=== PATIENT | female | born 2000 | race Caucasian/White ===

== ENCOUNTER 2025-08-12 07:43 | Emergency (ER) | payer SELFPAY ==
--- NOTE | ~2025-08-12 | XR_ITS ---
EXAMINATION: XR chest 2V, 08/12/2025 8:20 CDT HISTORY: Syncope COMPARISON: No comparisons available. Technique: 2 views obtained. Findings: The lungs are clear, no effusion. No pneumothorax. Heart is normal size. Mediastinal and hilar contours are within normal limits. Bony thorax no acute abnormality. Impression: No acute cardiopulmonary abnormality. Reviewed, dictated and finalized at location P. Impression: No acute cardiopulmonary abnormality.
[2025-08-12 07:43] VITALS: BP 114/66; PULSE 79; RESP 20; TEMP 36.4; O2SAT 97
--- NOTE | 2025-08-12 07:50 | ECG_ITS ---
Test Date: 2025-08-12 07:52:05 Measurements Intervals [place] Rate: 80 P: 58 RI: 164 QRS: 122 QRSD: 83 T: 26 QT: 379 QTc: 439 Interpretive Statements SINUS RHYTHM RIGHT AXIS DEVIATION POSSIBLE RIGHT VENTRICULAR CONDUCTION DELAY CANNOT R/O SEPTAL INFARCT, AGE INDETERMINATE BASELINE ARTIFACT- I, II, III, AVR, AVL, AVF, V2-V3 ABNORMAL ECG No previous ECG available for comparison Electronically Signed On 08-12-2025 09:17:12 CDT by Mauricio Allen D.O.
[2025-08-12 08:00] LABS: Hematocrit 41.6 % (37.0-47.0); Hemoglobin 14.5 g/dL (12.0-15.0); Immature Granulocyte Percent A 0.6 % (0-0.5); Lymphocytes Absolute Auto 1.39 K/mm3 (0.9-3.2); Mean Corpuscular HGB Conc 34.9 g/dl (32-36); Mean Corpuscular Hemoglobin 31.5 pg (26-34); Mean Corpuscular Volume 90.4 fl (80-100); Nucleated Red Blood Cells Absolute Auto 0.000 K/mm3 (0.0-0.012); Nucleated Red Blood Cells Perc 0.0 % (0.0-0.2); Platelet Count Result 140 k/mm3 (150-375); Red Blood Count 4.60 M/mm3 (4.2-5.4); White Blood Count 18.0 K/mm3 (4.5-10.0)
[2025-08-12 08:19] VITALS: BP 107/57; BP 108/68; BP 116/62; PULSE 80; PULSE 82; PULSE 83
[2025-08-12 08:19] LABS: Alanine Aminotransferase 25 U/L (6-35); Albumin Level 4.4 g/dL (3.5-5.1); Alkaline Phosphatase 61 U/L (38-126); Anion Gap 9 mmol/L (4-12); Aspartate Amino Transferase 32 U/L (14-36); Bilirubin,Total 2.0 mg/dL (0.2-1.3); Blood Urea Nitrogen 10 mg/dL (7-17); Calcium 9.0 mg/dL (8.4-10.2); Carbon Dioxide 23 mmol/L (22-30); Chloride 101 mmol/L (98-107); Estimated CRCL calculation 97 ml/min; Estimated Glomerular Filt Rate > 60; Glucose 112 mg/dL (65-110); Potassium 3.6 mmol/L (3.4-5.0); Sodium 133 mmol/L (137-145); Total Protein 6.9 g/dL (6.3-8.2)
[2025-08-12] MEDS: LACTATED RINGERS 1,000 ML 999 ML IV CONT (08:37)
[2025-08-12 08:55] LABS: Strep Group A RT-PCR NOT DETECTED (Negative)
--- OUTSIDE RECORDS SUMMARY | 2025-08-12 08:58 | XMS_ITS | Clinical Summary ---
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 She was seen in the ED and obtained MRI brain wwo, with no significant findings other than sinus disease. Diplopia resolved and has not since returned. Patient has full extraocular motility and is ortho in all positions of gaze on cover test, and has 100 stereopsis on randot stereo test. 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 Discussed visual hygiene- taking short breaks every 20-30 minutes and refocusing on a distant object for 20-30 seconds. Patient instructed to call if any new acute symptoms arise. Cardiac risk counseling 10/10/2019 Assessment & Plan (10/10/2019 2:35 PM [employer]): We will screen her for lipids at her next visit, per lipid guidelines. Ventricular septal defect (VSD), perimembranous 10/09/2019 Assessment & Plan (10/10/2019 2:34 PM [employer]): Successfully repaired without evidence of patch leak. No evidence of LV or RV volume or pressure overload. No evidence of DCRV. Repeat TTE in 3 years. Immunizations Immunization Administration Dates Next Due DTaP 04/28/2005, 1,11/29/2000,10/29 DTaP / HiB 10/26/2000 HPV, Unspecified 09/11/2011,05/11/2011, 1 Hep A, Pediatric 07/06/2006,02/27/2006 Hep B Vaccine 03/22/2021,02/18/2021,06/03/2001 Hep B, Adolescent or Pediatric 06/03/2001,2000 HiB 10/29/2000,09/24/2000 IPV 04/28/2005,11/29/2000,10/26/2000 Influenza LAIV (Nasal) 08/02/2010,06/07/2009, Influenza, Quadrivalent, Rec ombinant, Egg Free, Preservative Free, Intramuscular 06/21/2023 Influenza, Quadrivalent, Spl it, Preservative Free, Intramuscular 07/28/2022,07/26/2021,07/04/2020 Influenza, Split 08/12/2007, 5,08/26/2003,08/29,10/02/2001,09/05/2001 Influenza, Unspecified 07/22/2021,2018,08/03/2017,07/31 MMR 02/07/2023, 5,10/29/2000,10/26 Meningococcal ACWY, Unspecified 05/23/2016,02/08 Meningococcal B, unspecified 05/07/2016,04/02/20 15 Pneumococcal Conjugate 7-Valent 11/29/2000 Tdap 03/08/2021 Varicella 02/07/2023,02/28/2008,10/26/2000 Surgical History Surgery Date Site/Laterality Comments VSD REPAIR Repaired at 2.5 years of age with a background patch, no residual VSD Medical History Medical History Date Comments VSD (ventricular septal defect) Migraines Family History * Patient is adopted Relation Name Status Comments Father Mother Social History Tobacco Use Types Packs/Day Years Used Date Smoking Tobacco: Never Cigarettes Smokeless Tobacco: Never Tobacco Cessation:Counseling Given: Not Answered AUDIT-C Answer Date Recorded Q1: How often do you have a drink containing alcohol? Never 08/28/2022 Q2: How many drinks containi ng alcohol do you have on a typical day when you are drinking? Patient does not drink Q3: How often do you have si x or more drinks on one occasion? Never 08/28/2022 PHQ-2 Answer Date Recorded PHQ-2 Total Score (If total score is 3 or more points, staff should administer the PHQ-9) 3 03/12/2024 PHQ-9 Answer Date Recorded PHQ-9 Total Score 14 03/12/2024 Personal Safety Answer Date Recorded Have you ever been in or are you currently in a harmful physical or emotional relationship or is someone making you feel afraid or unsafe? 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 Not on file Not on file Not on file Obstetrics History Last Filed Vital Signs Vital Sign Reading Time Taken Comments Blood Pressure 121/76 03/12/2024 12:59 PM CDT Pulse 72 03/12/2024 12:59 PM CDT Temperature 36.7 C (98 F) 10/26/2023 7:14 AM [employer] Respiratory Rate 16 10/26/2023 7:30 PM [employer] Oxygen Saturation 98% 10/26/2023 7:30 PM [employer] Inhaled Oxygen Concentration - - Weight 59.4 kg (131 lb) 03/12/2024 12:59 PM CDT Height 162.6 cm (5' 4) 03/12/2024 12:59 PM CDT Body Mass Index 22.49 03/12/2024 12:59 PM CDT Plan of Treatment Health Maintenance Due Date Last Done Comments Cervical Cancer Screening 1998 Hepatitis C Screening 1998 Regular Well Visit/Exam 18-64 08/28/2023 08/28/2022 Depression Screening 03/12/2025 03/12/2024, 03/12/2024, 08/28/2022 Covid-19 Vaccine (6 - 2024-2 6 season) 2025 02/09/2024, 07/28/2022, 09/13/2021, Additional history exists Influenza Vaccine (#1) 2025 , 07/28/2022, 07/26/2021, Additional history exists DTaP/Tdap/Td Vaccine (6 - Td or Tdap) 03/08/2031 03/08/2021, 04/28/2005, 10/02/2001, Additional history exists Pneumococcal vaccine <65 Completed 11/29/2000 HPV Vaccines Completed 09/11/2011, 04/22, 02/08/2011 Hepatitis B Screening Completed 03/22/2021 , 02/18/2021, 06/03/2001, Additional history exists Varicella Vaccines Completed 02/07/2023, 0 02/28/2008, 10/26/2000 Insurance [employer] [facility] [id number] [facility] [id number] [facility] [id number] Care Teams 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
[2025-08-12 08:59] LABS: BEDSIDEPREGUCG Negative (Negative)
[2025-08-12 09:06] LABS: Influenza A QL RT-PCR Negative (Negative); Influenza B QL RT-PCR Negative (Negative); RSV RNA, RT-PCR Negative (Negative); SARS-CoV-2 RNA PCR Negative (Negative)
[2025-08-12 09:08] LABS: Negative Monotest Control Negative (Negative); Positive Monotest Control Positive (Positive)
[2025-08-12 09:21] VITALS: BP 101/57; PULSE 64; RESP 14; O2SAT 100
--- NOTE | 2025-08-12 09:38 | ED.GENADULT ---
HPI - General Adult General Chief complaint: Syncope Stated complaint: syncope Time Seen by Provider: 08/12/25 07:53 History of Present Illness HPI narrative: This is a 24-year-old female presenting ED with chief of presyncope. Patient says she woke up today with sore throat and was not feeling well. She then started to get lightheaded, developed spots in her vision felt very flushed. She felt like she was going to faint and sat down. She did not pass out at that time but then had another episode several minutes later with loss of conscious. She did not bite her tongue. She did not appear pains. She quickly returned to her baseline. She does not have any fevers chills chest pain difficulty breathing abdominal pain or urinary symptoms. Last menstrual period was last month. Related Data Home Medications ?Medication ?Instructions ?Recorded ?Confirmed ?Last Taken ?Type multivitamin,cx-xxpt-[id number] 1 tablet PO DAILY 05/10/20 06/01/22 Unknown History (Complete Multivitamin tablet) cholecalciferol (vitamin D3) 25 25 mcg PO DAILY 05/23/21 06/01/22 Unknown History mcg (1,000 unit) capsule Allergies Allergy/AdvReac Type Severity Reaction Status Date / Time No Known Allergies Allergy Verified 08/12/25 08:22 [facility] Surgical History Surgical History Past history of ventricular septal defect, post surgical repair Social History Social History Smoking status: Never smoker Alcohol intake: never Substance use: never Do You Feel Safe in your Home?: Yes Lack of Transportation: No Lack of Food: Never True Current Housing: I Have Housing Concerned About Future Housing: No Difficulty Paying Gas/Electric Bills: No Difficulty Paying for Meds: No Currently Unemployed: No Education: Bachelor's Degree Difficulty w/ Childcare or Family Care: No Exam Narrative: APPEARANCE: No apparent distress. Head: atraumatic. Mild erythema posterior pharynx EYES: EOMI, NOSE: Atraumatic NECK: Trachea midline RESPIRATORY: No increased rate of breathing clear to auscultation CARDIOVASCULAR: RRR, no peripheral edema ABDOMINAL: Non-distended soft nontender MUSCULOSKELETAl: No obvious deformities NEURO: Alert. Moving 4/4 extremities SKIN:: Warm, dry. Normal color PSYCHIATRIC: Normal affect Course Vital Signs Vital signs: Vital Signs Temperature 97.6 F 08/12/25 07:43 Pulse Rate 79 08/12/25 07:43 Respiratory Rate 20 08/12/25 07:43 Blood Pressure 114/66 08/12/25 07:43 Pulse Oximetry 97 08/12/25 07:43 Oxygen Delivery Room Air 08/12/25 07:43 Temperature 97.6 F 08/12/25 07:43 Pulse Rate 64 08/12/25 09:21 Respiratory Rate 14 08/12/25 09:21 Blood Pressure 101/57 L 08/12/25 09:21 Pulse Oximetry 100 08/12/25 09:21 Oxygen Delivery Room Air 08/12/25 07:43 Medical Decision Making MDM Narrative Medical decision making narrative: -Course: 24-year-old female presenting with syncopal event in the setting sore throat. Patient has mild erythema of the posterior pharynx. Viral swabs, strep and mono screen were negative. Laboratory studies within normal limits. EKG without any abnormal findings. Syncope was preceded by illness, a prodrome. Likely benign syncope either vasovagal/orthostatic/reflexive.. White count is elevated a 18 could be due to pharyngitis versus stress reaction. Patient be treated with course dexamethasone and amoxicillin for her pharyngitis. Given return precautions. -DDX includes but is not limited to: Viral syndrome, strep throat, mono, dehydration, cardiac syncope Vital Signs Vital Signs: Vital Signs Temperature 97.6 F 08/12/25 07:43 Pulse Rate 79 08/12/25 07:43 Respiratory Rate 20 08/12/25 07:43 Blood Pressure 114/66 08/12/25 07:43 Pulse Oximetry 97 08/12/25 07:43 Oxygen Delivery Room Air 08/12/25 07:43 Temperature 97.6 F 08/12/25 07:43 Pulse Rate 64 08/12/25 09:21 Respiratory Rate 14 08/12/25 09:21 Blood Pressure 101/57 L 08/12/25 09:21 Pulse Oximetry 100 08/12/25 09:21 Oxygen Delivery Room Air 08/12/25 07:43 Lab Data 08/12/25 07:55 08/12/25 07:55 Labs: Lab Results 08/12/25 08/12/25 08/12/25 Range/Units 07:54 07:55 08:20 WBC 18.0 H (4.5-10.0) K/mm3 RBC 4.60 (4.2-5.4) M/mm3 Hgb 14.5 (12.0-15.0) g/dL Hct 41.6 (37.0-47.0) % MCV 90.4 (80-100) fl MCH 31.5 (26-34) pg MCHC 34.9 (32-36) g/dl RDW 11.3 L (11.5-14.5) % Plt Count 140 L (150-375) k/mm3 MPV 9.0 (7.4-10.4) fl Immature Gran % (Auto) 0.6 H (0-0.5) % Neut % (Auto) 83.6 H (45.5-73.1) % Lymph % (Auto) 7.7 L (18.3-44.2) % [place] % (Auto) 7.5 (2.6-8.5) % Eos % (Auto) 0.2 (0-4.4) % Baso % (Auto) 0.4 (0.2-1.2) % Lymph # (Auto) 1.39 (0.9-3.2) K/mm3 [place] # (Auto) 1.4 H (0.1-0.6) K/mm3 Eos # (Auto) 0.0 (0-0.3) K/mm3 Baso # (Auto) 0.1 (0.0-0.1) K/mm3 Abs Immat Gran (auto) 0.11 H (0.00-0.031) K/mm3 Absolute Neuts (auto) 15.0 H (1.3-6.7) K/mm3 Absolute Nucleated RBC 0.000 (0.0-0.012) K/mm3 Nucleated RBC % 0.0 (0.0-0.2) % Sodium 133 L (137-145) mmol/L Potassium 3.6 (3.4-5.0) mmol/L Chloride 101 (98-107) mmol/L Carbon Dioxide 23 (22-30) mmol/L Anion Gap 9 (4-12) mmol/L BUN 10 (7-17) mg/dL Creatinine 0.65 L (0.7-1.0) mg/dL Estim Creat Clear Calc 97 ml/min Estimated GFR > 60 (59 - ) Glucose 112 H (65-110) mg/dL Calcium 9.0 (8.4-10.2) mg/dL Total Bilirubin 2.0 H (0.2-1.3) mg/dL AST 32 (14-36) U/L ALT 25 (6-35) U/L Alkaline Phosphatase 61 (38-126) U/L Total Protein 6.9 (6.3-8.2) g/dL Albumin 4.4 (3.5-5.1) g/dL Urine Color Urine Appearance Urine pH Ur Specific [place] Urine Protein Urine Glucose (UA) Urine Ketones Ur Blood (Man) Urine Nitrate Urine Bilirubin Urine Urobilinogen Leukocyte Esterase Rfl POC Urine HCG, Qual (Negative) Monoscreen Negative (Negative) Influenza A (RT-PCR) Negative (Negative) Influenza B (RT-PCR) Negative (Negative) RSV (RT-PCR) Negative (Negative) SARS-CoV-2 RNA (RT-PCR) Negative (Negative) Group A Strep (PCR) Not detected (Negative) 08/12/25 08/12/25 Range/Units 08:53 08:54 WBC (4.5-10.0) K/mm3 RBC (4.2-5.4) M/mm3 Hgb (12.0-15.0) g/dL Hct (37.0-47.0) % MCV (80-100) fl MCH (26-34) pg MCHC (32-36) g/dl RDW (11.5-14.5) % Plt Count (150-375) k/mm3 MPV (7.4-10.4) fl Immature Gran % (Auto) (0-0.5) % Neut % (Auto) (45.5-73.1) % Lymph % (Auto) (18.3-44.2) % [place] % (Auto) (2.6-8.5) % Eos % (Auto) (0-4.4) % Baso % (Auto) (0.2-1.2) % Lymph # (Auto) (0.9-3.2) K/mm3 [place] # (Auto) (0.1-0.6) K/mm3 Eos # (Auto) (0-0.3) K/mm3 Baso # (Auto) (0.0-0.1) K/mm3 Abs Immat Gran (auto) (0.00-0.031) K/mm3 Absolute Neuts (auto) (1.3-6.7) K/mm3 Absolute Nucleated RBC (0.0-0.012) K/mm3 Nucleated RBC % (0.0-0.2) % Sodium (137-145) mmol/L Potassium (3.4-5.0) mmol/L Chloride (98-107) mmol/L Carbon Dioxide (22-30) mmol/L Anion Gap (4-12) mmol/L BUN (7-17) mg/dL Creatinine (0.7-1.0) mg/dL Estim Creat Clear Calc ml/min Estimated GFR (59 - ) Glucose (65-110) mg/dL Calcium (8.4-10.2) mg/dL Total Bilirubin (0.2-1.3) mg/dL AST (14-36) U/L ALT (6-35) U/L Alkaline Phosphatase (38-126) U/L Total Protein (6.3-8.2) g/dL Albumin (3.5-5.1) g/dL Urine Color Pending Urine Appearance Pending Urine pH Pending Ur Specific [place] Pending Urine Protein Pending Urine Glucose (UA) Pending Urine Ketones Pending Ur Blood (Man) Pending Urine Nitrate Pending Urine Bilirubin Pending Urine Urobilinogen Pending Leukocyte Esterase Rfl Pending POC Urine HCG, Qual Negative (Negative) Monoscreen (Negative) Influenza A (RT-PCR) (Negative) Influenza B (RT-PCR) (Negative) RSV (RT-PCR) (Negative) SARS-CoV-2 RNA (RT-PCR) (Negative) Group A Strep (PCR) (Negative) Discharge Plan Discharge Clinical Impression: Syncope, Pharyngitis, Leukocytosis Patient Disposition: Home Condition: Stable Instructions: Antibiotic Form, Pharyngitis (ED), Syncope (ED) Additional Instructions: You were seen in the emergency department after a fainting. You also have a sore throat. Please complete a course of amoxicillin. Use Motrin Tylenol as needed for pain. Please make sure you are drinking plenty of fluids. Follow up care physician 3 to 5 days to ensure improvement of symptoms. If you develop recurrent fainting or any new symptoms such as chest pain, difficulty breathing return to ED for re-evaluation. Patient Language: [place] Prescriptions: New amoxicillin 500 mg capsule 500 mg PO Q12H Qty: 20 0RF No Action Complete Multivitamin Tablet 1 tablet PO DAILY cholecalciferol (vitamin D3) 25 mcg (1,000 unit) capsule 25 mcg PO DAILY Follow-up/Referrals: PHYSICIAN,HAND OUTSIDE CUTTER [Primary Care Provider, Internal Medicine]
[2025-08-12 10:01] LABS: Add Urine Microscopic? YES; Appearance Urine Cloudy (Clear); Glucose Urine UA Negative (Negative); Leukocyte Esterase Ur Trace LEU/UL (Negative); Need Manual Microscopic Reviewed; Nitrate Urine Negative (Negative); Specific Grav Ur 1.029 (1.001-1.035)
[2025-08-12] MEDS: dexAMETHasone SOD PHOS INJ 10 MG/ML 1 ML VIAL IM (10:12)
[2025-08-12] MEDS: AMOXICILLIN 500 MG CAPSULE PO (10:13)
[2025-08-12 10:25] VITALS: BP 101/70; PULSE 80; RESP 16; TEMP 36.7; O2SAT 98
== END 2025-08-12 10:27 | disposition home or self-care (01) ==
PROVIDERS: Emergency Provider Emergency Medicine
DX: R55 Syncope and collapse (principal); J02.9 Acute pharyngitis, unspecified; D72.829 Elevated white blood cell count, unspecified; Z20.822 Contact with and (suspected) exposure to COVID-19; R94.31 Abnormal electrocardiogram [ECG] [EKG]
CPT/HCPCS: 36415; 71046; 80053; 81001; 81025; 85025; 86308; 87086; 87637; 87651; 93005; 96360; 96372; 99283; A9270; J1100; J7120